=== PATIENT | female | born 1975 | race Caucasian/White ===

== ENCOUNTER 2024-02-28 09:07 | Outpatient (AMB) | payer OTHER, SELFPAY ==
--- NOTE | 2024-02-28 09:24 | MHC.OFFWIV ---
Intake Vital Signs 02/28/24 09:27 Height 5 ft 4 in Weight 153 lb BMI 26.3 BP 120/90 H Blood Pressure Location Lt brachial Position Sitting Pulse 89 Pulse Source Pulse Oximeter Temp 98.7 F Temp Source Oral Pulse Oximetry (%) 98 Oxygen Delivery Method Room Air Intake Visit Reasons: Est/ sinus sarah, chest tightness (lobby) Intake Note: Patient here for cough, chest tightness, sinus congestion which started 6 days ago. Patient Tobacco Use Status: Never used Tobacco Allergies No Known Allergies Allergy (Verified 02/28/24 09:38) Do you need a note to return to daycare/school/sports/work: No HPI HPI Comments History of Present Illness Details Here today with complaints of cold symptoms that started about 6 days ago. Her 1st symptoms started with sneezing and nasal congestion. She was treating with antihistamines, nasal sprays and Sudafed without relief. Since this time her symptoms have progressed to facial pressure, productive cough with green/blood-tinged sputum. Denies fever, chills, chest pain. PFSH Social History Patient Tobacco Use Status: Never used Tobacco Review of Systems Const All systems reviewed & are unremarkable except as noted in HPI and below Physical Exam Vital Signs: Last Vital Signs Temp 98.7 F 02/28/24 09:27 Pulse 89 02/28/24 09:27 BP 120/90 H 02/28/24 09:27 Pulse Ox 98 02/28/24 09:27 Oxygen Delivery Method Room Air 02/28/24 09:27 BMI result Body Mass Index 26.3 Const Other: Awake alert NAD Sclera and conjunctiva clear bilat Nares patent, turbinates pale, mild sinus tenderness with palpation bilat TM intact effusions bilat MMM, pharynx WNL RRR LS faint inspiratory wheezes throughout, occasional hacking cough without respiratory distress Assessment & Plan Assessment & Plan (1) Bronchitis: Code(s): J40 - Bronchitis, not specified as acute or chronic Plan: . Above Medications: New azithromycin For 250 mg dose pack: take 500 mg today (day 1), then 250 mg for 4 days (days 2-5) PO 5 days 6 tabs 0RF prednisone 50 mg PO DAILY 5 days 5 tabs 0RF Patient Instructions: Take antibiotic and prednisone as directed. Please stop taking Sudafed. If something is needed for cough use something like Mucinex. Continue supportive care such as rest and proper hydration. Should her symptoms worsen or not improve please seek additional care. Coding Level of Care Code Est Pt Level 3 (83446) Diagnoses Bronchitis J40
[2024-02-28 09:27] VITALS: BP 120/90; PULSE 89; TEMP 37.1; O2SAT 98; BMI 26.3
== END 2024-02-28 10:11 | disposition home or self-care (01) ==
PROVIDERS: PCP Internal Medicine; Visit Provider Nurse Practitioner Family
DX: J40 Bronchitis, not specified as acute or chronic (principal)
CPT/HCPCS: 99213

== ENCOUNTER 2024-08-12 09:25 | Outpatient (AMB) | payer OTHER, SELFPAY ==
--- NOTE | 2024-08-12 09:37 | AM.OFFWIN_ITS ---
Intake Vital Signs 08/12/24 09:38 Height 5 ft 4 in BP 130/72 Blood Pressure Location Lt brachial Position Sitting Pulse 72 Pulse Source Pulse Oximeter Temp 98.2 F Temp Source Oral Pulse Oximetry (%) 98 Oxygen Delivery Method Room Air Intake Visit Reasons: EP cough,headache Intake Note: pt is here for cough and headache for over a week an a half Patient Tobacco Use Status: Never used Tobacco Allergies No Known Allergies Allergy (Verified 08/12/24 09:38) Do you need a note to return to daycare/school/sports/work: No HPI EP cough,headache HPI Details This note is constructed using voice recognition software. While every effort has been made to ensure accuracy, cytotechnologist/cytology supervisor errors may have been included. The patient is a 48 year old female who presents to the clinic today with cough and left-sided maxillary pressure for the last week and a half. She reports that her son lives at college, and came back home, bringing her exposure to an upper respiratory illness. She started with a cough, and then started with sinus pressure on the left shortly after. She has attempted to treat this at home with no relief. She denies fever, chills, shortness of breath. She does report that she is getting up thick green secretions at times. Person ultimately was seen by the health center at school, and started on antibiotics. [facility] Social History Patient Tobacco Use Status: Never used Tobacco Review of Systems Const All systems reviewed & are unremarkable except as noted in HPI and below Physical Exam Vital Signs: Last Vital Signs Temp 98.2 F 08/12/24 09:38 Pulse 72 08/12/24 09:38 BP 130/72 08/12/24 09:38 Pulse Ox 98 08/12/24 09:38 Oxygen Delivery Method Room Air 08/12/24 09:38 Const General: cooperative, healthy appearing, comfortable and no acute distress Orientation/consciousness: patient oriented x3 Limitations: no limitations HEENT Head: Yes normal to inspection Ears: hearing grossly normal bilaterally, external ears normal and TM's normal bilaterally General nose exam: Normal external nose present, Normal nares present, Abnormal mucous membranes and turbinates present erythematous and Nasal discharge present purulent Face and sinus: Yes normal facial exam and Yes sinus tenderness (Left maxillary) Mouth: Normal oral and palatal mucosa present and moist mucous membranes Throat: Yes posterior oropharynx normal, Yes tonsils normal and Yes uvula midline Eyes General: appearance normal, both eyes and all related structures Neck Neck: Yes normal visual inspection Resp Effort & Inspection: normal respiratory effort, able to speak in complete sentences, Actively coughing, no respiratory distress, not tachypneic, no tripod positioning and no use of accessory muscles Auscultation: clear to auscultation bilaterally Cardio Rate: regular rate Rhythm: regular rhythm Heart sounds: normal S1 and S2 Skin General skin exam: no rashes or lesions noted Neuro General: patient oriented x3 Extrem General: Yes normal to inspection and Yes no clubbing, cyanosis or edema Assessment & Plan Assessment & Plan (1) Sinusitis: Code(s): J32.9 - Chronic sinusitis, unspecified Qualifiers: Sinusitis location: maxillary Chronicity: acute Recurrence: non- recurrent Qualified Code(s): J01.00 - Acute maxillary sinusitis, unspecified Plan: Supportive measures encouraged and reviewed. Advised consideration of sinus rinse if needed. Antibiotic sent to requested pharmacy, advised patient to take antibiotics until completed and not to stop if feeling better, unless the patient has side effects. Advised patient to follow up with primary care provider with worsening or failure to resolve. Plan See above for full details and plan. Medications: New amoxicillin-pot clavulanate 875-125 mg 1 tab PO BID 7 days 14 tabs 0RF Coding Level of Care Code Est Pt Level 3 (20891) Diagnoses Acute non-recurrent maxillary sinusitis J01.00 Sinusitis location: maxillary Chronicity: acute Recurrence: non-recurrent
[2024-08-12 09:38] VITALS: BP 130/72; PULSE 72; TEMP 36.8; O2SAT 98
== END 2024-08-12 11:38 | disposition home or self-care (01) ==
PROVIDERS: PCP Internal Medicine; Visit Provider Registered Nurse
DX: J01.00 Acute maxillary sinusitis, unspecified (principal)

== ENCOUNTER → 2024-08-12 09:25 | Outpatient (BNVA) | payer OTHER, SELFPAY | PROVIDERS: PCP Internal Medicine; Visit Provider Registered Nurse ==